=== PATIENT | male | born 1940 | race Caucasian/White ===

== ENCOUNTER 2016-09-18 10:50 | Emergency (ER) | payer MEDICARE ==
--- NOTE | 2016-09-18 12:42 | ER NURSING DOCUMENTATION ---
Nurse's Notes [facility] Name:Faraz Moncada Age:76 yrs Sex:Male :1940 Arrival Date:09/18/2016 Time:10:50 BedD-1 Private MD:No PCP, Identified Diagnosis:Viral Upper Respiratory Infection (URI) Presentation: 09/18 10:57 Presenting complaint: Patient states: I worried that I have the flu because my has cb it. Cough dry 3-4 days. Transition of care: Home. 10:57 Method Of Arrival: Private Vehicle cb 10:57 Acuity: ROBERTO 3 cb 11:08 Notified ED Physician of patient's arrival and CC Dr. Hernandes notified. cb Triage Assessment: 11:06 General: Appears in no apparent distress, well groomed, Behavior is cooperative. cb 11:09 Pain: Denies pain. EENT: Denies nasal congestion. Neuro: Level of Consciousness is cb awake, alert, Oriented to person, place, time, event. Cardiovascular: Rhythm is regular. Respiratory: Reports cough that is non-productive, Onset: The symptoms/episode began/occurred 3-4, the patient has mild shortness of breath. GI: Reports normal bowel habits, tolerance of fluids, tolerance of food. : Denies burning with urination. Derm: Denies denies any unhealing wounds or rashes. Musculoskeletal: No deficits noted. Historical: - Allergies: Phenergan; - Home Meds: 1. citalopram oral 2. amlodipine oral 3. Bupropion Oral 4. Aspirin Oral 5. multivitamin oral 6. citalopram oral 7. Alprazolam Oral 8. Ramipril Oral 9. atorvastatin oral 10. Omeprazole Oral 11. Temazepam Oral 12. ropinirole oral 13. Folic Acid Oral 14. ginko biloba 15. latanoprost opht 16. testosterone cypionate IM - PMHx: Hypertension; DEPRESSION; HYPERTENSION; Hyperlipidemia ; GERD; CAD; GLAUCOMA; - PSHx: ANGIOPLASTY; Cholecysectomy; - Tetanus: < 10 years. - Ebola Screening: : Patient negative for fever greater than or equal to 101.5 degrees Fahrenheit, and additional compatible Ebola Virus Disease symptoms. Patient denies exposure to infectious person. Patient denies travel to an Ebola-affected area in the 21 days before illness onset. No symptoms or risks identified at this time. . - Immunization history: Pneumococcal vaccine is not up to date, It has been more than five years since last vaccine, Flu Vaccine < 1 year. - Social history: Smoking status: Patient states former smoker of tobacco. Screenin:12 Infectious Disease Risk None. Abuse screen: Denies threats or abuse. Denies injuries cb from another. Nutritional screening: No deficits noted. Assessment: 12:40 Respiratory: Airway is patent Respiratory effort is even, unlabored, Breath sounds are lpr clear bilaterally. 12:40 Cardiovascular: Rhythm is regular. lpr Vital Signs: 11:06 BP 141 / 69; Pulse 66; Resp 20; Temp 98.8(TE); Pulse Ox 87% on R/A; Weight 83.91 kg; cb Height 5 ft. 11 in. (180.34 cm); Pain 0/10; 12:06 BP 145 / 68 (auto/); lpr 12:07 Pulse 59 MON; Resp 19; Pulse Ox 96% ; lpr 12:17 Pulse 63 MON; Resp 21; lpr 12:18 BP 135 / 73 (auto/); lpr 11:06 Body Mass Index 25.80 (83.91 kg, 180.34 cm) cb ED Course: 10:54 Patient arrived in ED. ds 10:55 No PCP, Identified is Private Physician. ds 10:57 Anay Delarosa, BLANCA is Primary Nurse. cb 10:58 Triage completed. cb 11:03 Evaristo Hernandes MD is Attending Physician. sc 11:12 Valuables Remains with patient. Cardiac Monitoring On for Nurse Monitoring only. Pulse cb Ox - RN Monitoring Only NIBP On - RN Monitoring Only. 11:30 Oxygen Oxygen administration via nasal cannula @ 2L/min. lpr Administered Medications: No medications were administered Outcome: 12:17 Discharge ordered by . sc 12:40 Discharged to home lp 12:40 Condition: stable 12:40 Instructed on discharge instructions, follow up and referral plans. medication usage, Demonstrated understanding of patient is aware that his pulse ox is low 87% with out oxygen but patient doesn't want to get home oxygen 12:41 Patient left the ED. lp 09/19 10:39 Discharge F/U Call: Unable to reach: no answer lp Signatures: Milan Moreno RN RN tg Anay Delarosa RN RN cb Pavlish, Lena, RN RN lp Carleen Mccauley, Reg Reg ds Evaristo Hernandes MD MD sc Roberts, Leslie, BLANCA RN lpr
--- NOTE | 2016-09-18 12:42 | ER PHYSICIAN DOCUMENTATION ---
Physician Documentation [facility] Name:Faraz Moncada Age:76 yrs Sex:Male :1940 Arrival Date:09/18/2016 Time:10:50 BedD-1 Private MD:No PCP, Identified ED Evaristo Hernandes Disposition: 09/18/16 12:17 Discharged to Home/Self Care. Impression: Viral Upper Respiratory Infection (URI). - Condition is Good. - Discharge Instructions: VIRAL URI Adult - URI, Viral, No Abx (Adult). - Medical Reconciliation form form. - Follow up: Private Physician; When: As needed; Reason: Worsening of condition. - Problem is new. - Symptoms are unchanged. HPI: 09/18 12:13 This 76 yrs old Male presents to ER via Private Vehicle with complaints of sc cough, flu exposure. 12:14 The patient or guardian reports cough, that is intermittent, described as mild, with no sc sputum, hospd with influenza last week, now pt with cough fatigue. Onset: The symptom(s)/episode began/occurred 3 day(s) ago. Severity of symptoms: At their worst the symptoms were mild. Modifying factors: the symptoms are aggravated by nothing. Associated signs and symptoms: Pertinent negatives: chest pain, diarrhea, ear ache, fever, nausea, rhinorrhea, sore throat, vomiting. Historical: - Allergies: Phenergan; - Home Meds: 1. citalopram oral 2. amlodipine oral 3. Bupropion Oral 4. Aspirin Oral 5. multivitamin oral 6. citalopram oral 7. Alprazolam Oral 8. Ramipril Oral 9. atorvastatin oral 10. Omeprazole Oral 11. Temazepam Oral 12. ropinirole oral 13. Folic Acid Oral 14. ginko biloba 15. latanoprost opht 16. testosterone cypionate IM - PMHx: Hypertension; DEPRESSION; HYPERTENSION; Hyperlipidemia ; GERD; CAD; GLAUCOMA; - PSHx: ANGIOPLASTY; Cholecysectomy; - Tetanus: < 10 years. - Ebola Screening: : Patient negative for fever greater than or equal to 101.5 degrees Fahrenheit, and additional compatible Ebola Virus Disease symptoms. Patient denies exposure to infectious person. Patient denies travel to an Ebola-affected area in the 21 days before illness onset. No symptoms or risks identified at this time. . - Immunization history: Pneumococcal vaccine is not up to date, It has been more than five years since last vaccine, Flu Vaccine < 1 year. - Social history: Smoking status: Patient states former smoker of tobacco. ROS: 12:15 Constitutional: Negative for fever, chills, and weight loss. sc Eyes: Negative for injury, pain, redness, and discharge. ENT: Negative for injury, pain, and discharge. Neck: Negative for injury, pain, and swelling. Cardiovascular: Negative for chest pain, palpitations, and edema. Abdomen/GI: Negative for abdominal pain, nausea, vomiting, diarrhea, and constipation. Back: Negative for injury and pain. MS/Extremity: Negative for injury and deformity. Skin: Negative for injury, rash, and discoloration. 12:15 Neuro: Negative for headache, weakness, numbness, tingling, and seizure. sc 12:15 Respiratory: Positive for cough. Exam: Constitutional: This is a well developed, well nourished patient who is awake, alert, and in no acute distress. Head/Face: Normocephalic, atraumatic. Eyes: Pupils equal round and reactive to light, extra-ocular motions intact. Lids and lashes normal. Conjunctiva and sclera are non-icteric and not injected. Cornea within normal limits. Periorbital areas with no swelling, redness, or edema. ENT: Nares patent. No nasal discharge, no septal abnormalities noted. Tympanic membranes are normal and external auditory canals are clear. Oropharynx with no redness, swelling, or masses, exudates, or evidence of obstruction, uvula midline. Mucous membranes moist. Neck: Trachea midline, no thyromegaly or masses palpated, and no cervical lymphadenopathy. Supple, full range of motion without nuchal rigidity, or vertebral point tenderness. No meningismus. Cardiovascular: Regular rate and rhythm with a normal S1 and S2. No gallops, murmurs, or rubs. Normal PMI, no JVD. No pulse deficits. Back: No spinal tenderness. No costovertebral tenderness. Full range of motion. 12:15 Skin: Warm, dry with normal turgor. Normal color with no rashes, no lesions, and no sc evidence of cellulitis. 12:15 Respiratory: the patient does not display signs of respiratory distress, Respirations: normal, Breath sounds: are normal, clear throughout. 12:18 Neuro: Orientation: is normal. ga Vital Signs: 11:06 BP 141 / 69; Pulse 66; Resp 20; Temp 98.8(TE); Pulse Ox 87% on R/A; Weight 83.91 kg; cb Height 5 ft. 11 in. (180.34 cm); Pain 0/10; 12:06 BP 145 / 68 (auto/); lpr 12:07 Pulse 59 MON; Resp 19; Pulse Ox 96% ; lpr 12:17 Pulse 63 MON; Resp 21; lpr 12:18 BP 135 / 73 (auto/); lpr 11:06 Body Mass Index 25.80 (83.91 kg, 180.34 cm) cb MDM: 11:03 Patient medically screened. ga 12:16 Differential Diagnosis: Influenza Upper Respiratory Infection. Data reviewed: vital ga signs, nurses notes, and as a result, I will discharge patient. Counseling: I had a detailed discussion with the patient and/or guardian regarding: the historical points, exam findings, and any diagnostic results supporting the discharge/admit diagnosis, lab results, to return to the emergency department if symptoms worsen or persist or if there are any questions or concerns that arise at home, Patient with no symptoms of dyspnea, pulseox from 86-93 percent. 09/18 11:38 Order name: INFLUENZA A/B; Complete Time: 11:40 EDPA 09/18 11:40 Interpretation: Normal. ga 09/18 12:04 Order name: Oxygen; Complete Time: 12:09 lpr Dispensed Medications: No medications were administered Signatures: Anay Delarosa RN RN cb Pavlish, Lena, RN RN lp Chew, Scott, MD MD sc Roberts, Leslie, RN RN lpr
== END 2016-09-18 12:41 | disposition home or self-care (01) ==
LOC: ER 10:50
DX: J06.9 Acute upper respiratory infection, unspecified (principal); R06.00 Dyspnea, unspecified; I10 Essential (primary) hypertension; I25.10 Atherosclerotic heart disease of native coronary artery without angina pectoris; Z95.5 Presence of coronary angioplasty implant and graft; Z79.899 Other long term (current) drug therapy; Z79.82 Long term (current) use of aspirin
CPT/HCPCS: 87449; 99282; 99284